=== PATIENT | female | born 1935 | race Caucasian/White ===

== ENCOUNTER 2021-01-18 15:11 | Outpatient (CLI) | payer MEDICARE, SELFPAY ==
--- NOTE | 2021-01-18 15:57 | ECG_ITS ---
Measurements Intervals [place] Rate: 68 P: 34 FL: 208 QRS: 5 QRSD: 85 T: 58 QT: 386 QTc: 411 Interpretive Statements SINUS RHYTHM WITH FIRST DEGREE AV BLOCK CONSIDER INFERIOR INFARCT, AGE INDETERMINATE BORDERLINE ST-T WAVE ABNORMALITY- HIGH LATERAL LEADS ABNORMAL ECG Electronically Signed On 01-18-2021 20:11:15 CDT by Trip Marvin D.O.
[2021-01-18 16:03] LABS: Hemoglobin 14.5 g/dL (12.0-15.0)
[2021-01-18 16:25] LABS: Albumin Level 4.4 g/dL (3.5-5.1); Estimated Glomerular Filt Rate > 60; Glucose 96 mg/dL (65-110)
[2021-01-18 17:18] LABS: Hemoglobin A1C 6.3 % (<5.7)
== END 2021-01-18 15:12 | disposition home or self-care (01) ==
PROVIDERS: PCP Internal Medicine; Visit Provider Orthopaedic Surgery
DX: R73.03 Prediabetes (principal); K21.9 Gastro-esophageal reflux disease without esophagitis; M17.12 Unilateral primary osteoarthritis, left knee; I44.30 Unspecified atrioventricular block; Z87.442 Personal history of urinary calculi; I10 Essential (primary) hypertension
CPT/HCPCS: 36415; 82040; 82565; 82947; 83036; 85014; 85018; 93005

== ENCOUNTER 2021-01-30 08:01 | Outpatient (CLI) | payer MEDICARE, SELFPAY ==
--- NOTE | 2021-01-30 09:30 | EST_ITS ---
Patient Info Name: Agnes Gary Age: 85 years : 1935 Gender: Female Ht: 61 in Wt: 171 lbs BSA: 1.86 m2 HR: 68 bpm BP: 162 / 72 mmHg Heart Rhythm: Sinus Rhythm Technical Quality: Excellent Exam Date: 01/30/2021 9:26 AM Exam Location: [facility] Patient Status: Outpatient Admit Date: 01/30/2021 Staff Ordering Physician: Manolo Johnson MD Attending Provider: Manolo Johnson MD Exercise Technologist: Nicole Valencia CRT Exercise Physician: Julianne Hernandez CEP Exam Type: CA stress frank w NM Study Info Indications AbnormalEKG - A nuclear stress test was performed. History/Risk Factors Hypertension: Yes History/Risk Factors HTN. Arrhythmia. Possible old Septal CT. Summary 1. 1. Abnormal lexiscan stress test for ischemic ST changes by ECG criteria. 2. 2. Baseline hypertension. 3. 3. Nuclear scan to follow and will be reported separately. Please correlate with it. Protocol: LEXISCAN Stress ECG Details Stage: REST Duration (min): 2 min : 6 sec HR (bpm): 68 SBP (mmHg): 162 DBP (mmHg): 72 Stage: REST Duration (min): 7 min : 35 sec HR (bpm): 68 SBP (mmHg): 162 DBP (mmHg): 72 Stage: STAGE 1 Duration (min): 0 min : 12 sec HR (bpm): 69 SBP (mmHg): 162 DBP (mmHg): 72 Stage: RECOVERY Duration (min): 0 min : 47 sec HR (bpm): 95 SBP (mmHg): 162 DBP (mmHg): 72 Stage: RECOVERY Duration (min): 1 min : 47 sec HR (bpm): 95 SBP (mmHg): 162 DBP (mmHg): 72 Stage: RECOVERY Duration (min): 2 min : 47 sec HR (bpm): 95 SBP (mmHg): 170 DBP (mmHg): 68 Stage: RECOVERY Duration (min): 3 min : 47 sec HR (bpm): 92 SBP (mmHg): 169 DBP (mmHg): 69 Stage: RECOVERY Duration (min): 4 min : 47 sec HR (bpm): 89 SBP (mmHg): 165 DBP (mmHg): 67 Stage: RECOVERY Duration (min): 5 min : 47 sec HR (bpm): 87 SBP (mmHg): 165 DBP (mmHg): 62 Stage: RECOVERY Duration (min): 6 min : 18 sec HR (bpm): 86 SBP (mmHg): 165 DBP (mmHg): 62 Rest HR: 68 bpm Peak HR: 96 bpm Rest Sys BP: 162 mmHg Peak Sys BP: 170 mmHg Max Pred HR: 135 bpm % Max Pred HR: 71 % Target HR: 115 bpm Max RPP: 16,320 bpm*mmHg Termination Reason: Completed Protocol Cardiac Symptoms: Dyspnea Total Time: 0 min : 12 sec Rest Venegas BP: 72 mmHg Peak Venegas BP: 68 mmHg Total Dose: 0.4 mg Resting ECG Normal sinus rhythm, first degree AV block, cannot r/o septal infarct, age indeterminate. Stress ECG ST depression 1 mm in II, III, avF, V4-V6. Arrhythmias None. Report Signatures
--- NOTE | 2021-01-30 14:02 | WPDCARIOSTRE ---
Nuclear Stress Test INDICATIONS Indications: SOB PROCEDURE Procedure Performed: Myocardial Perf Spect-Multi Procedure: Patient underwent a lexiscan stress test and immediately was injected with 33.9 mCi of cardiolyte. Multiple tomographic images were obtained. These are of good quality. There is no evidence of perfusion defects with stress imaging. A separate resting images were obtained after patient was injected with 10.4 mCi of cardiolyte. Multiple tomographic images were obtained. These are of good quality. There is no evidence of perfusion defects with rest imaging. CONCLUSION Conclusion: 1. Normal myocardial perfsion imaging demonstrating no perfusion defects with stress or rest imaging. 2. No evidence of reversible ischemia. 3. Left ventriculogram demonstrates normal measured ejection fraction at 81%. The LV size is small at 42 ml. No wall motion abnormalities. 4. TID score is normal at 1.04.
== END 2021-01-30 08:02 | disposition home or self-care (01) ==
LOC: CHSCARD 08:03
PROVIDERS: PCP Internal Medicine; Visit Provider Internal Medicine
DX: R94.31 Abnormal electrocardiogram [ECG] [EKG] (principal)
CPT/HCPCS: 78452; 93017; A9502; J2785

== ENCOUNTER 2021-05-10 08:05 | Outpatient (CLI) | payer MEDICARE, SELFPAY ==
[2021-05-10 10:10] LABS: Basophils Absolute Auto 0.1 K/mm3 (0.0-0.1); Basophils Percent Auto 0.6 % (0.2-1.2); Eosinophils Absolute Auto 0.2 K/mm3 (0-0.3); Eosinophils Percent Auto 1.9 % (0-4.4); Hematocrit 45.7 % (37.0-47.0); Hemoglobin 14.7 g/dL (12.0-15.0); Immature Granulocyte Absolute 0.03 K/mm3 (0.00-0.031); Immature Granulocyte Percent A 0.4 % (0-0.5); Lymphocytes Absolute Auto 2.01 K/mm3 (0.9-3.2); Lymphocytes Percent Auto 25.3 % (18.3-44.2); Mean Corpuscular HGB Conc 32.2 g/dl (32-36); Mean Corpuscular Hemoglobin 30.6 pg (26-34); Mean Platelet Volume 9.4 fl (7.4-10.4); Monocytes Absolute Auto 0.9 K/mm3 (0.1-0.6); Monocytes Percent Auto 11.3 % (2.6-8.5); Neutrophils Absolute Auto 4.8 K/mm3 (1.3-6.7); Neutrophils Percent Auto 60.5 % (45.5-73.1); Platelet Count Result 335 k/mm3 (150-375); Red Blood Count 4.81 M/mm3 (4.2-5.4); Red Cell Distribution Width 14.9 % (11.5-14.5)
[2021-05-10 10:27] LABS: Albumin Level 4.3 g/dL (3.5-5.1); Estimated Glomerular Filt Rate 60; Glucose 111 mg/dL (65-110)
[2021-05-10 10:33] LABS: Urine Cotinine NEGATIVE
[2021-05-10 11:02] LABS: Hemoglobin A1C 6.5 % (<5.7)
== END 2021-05-10 08:06 | disposition home or self-care (01) ==
LOC: ANHSURGERY 08:14
PROVIDERS: PCP Internal Medicine; Visit Provider Orthopaedic Surgery
DX: M17.11 Unilateral primary osteoarthritis, right knee (principal); Z01.818 Encounter for other preprocedural examination
CPT/HCPCS: 80307; 82040; 82565; 82947; 83036; 85025; 87081

== ENCOUNTER 2021-06-06 00:13 | Day surgery (SDC) | payer MEDICARE, SELFPAY ==
--- NOTE | 2021-05-10 08:01 | PC.NURSE ---
Report to the Outpatient Waiting Room, entrance under the green pavilion located off [facility], at time _0600_ on date _06/06/21_. OR Time: _0730 AM__. - You and your visitor will be asked a series of questions to screen for COVID 19 for your protection. - A mask is required within the hospital. - NO visitors are allowed at this time. Patient visitors will be guided where to wait when not with patient. Preoperative COVID Testing Requirements: No COVID Test needed if: (proof is required; if not received patient will have Rapid Test prior to entry) - Patient has received COVID Vaccine at least 14 days prior to procedure date or - Patient has positive COVID test result within last 90 days of surgery date. COVID Test needed if above criteria is not met If not COVID vaccinated a COVID test must be conducted within 72 hours of surgery and patient is asked to isolate self from time of testing until procedure. You will go to the [facility] for your COVID testing. The [facility] is located at the corner of [address] [facility]. You will only be called if COVID results are positive and your surgeon may reschedule your elective surgery date. Patients may have clear liquids (water, carbonated beverages, clear teas, apple juice) until 3 hours prior to surgery with a maximum of 20 ounces. (0430 AM) - No food from midnight until time of surgery - Infants may have breast milk until 4 hours before surgery, infant formula 6 hours prior to surgery. - Children will be allowed to drink immediately following surgery. If applicable, please bring a bottle or sippy cup to assist with drinking. Juice, water, soda, and popsicles are readily available. For infants on formula, please bring formula the day of surgery. Pacifiers are allowed. Take the following medications with a SIP of water the morning of surgery: _BUSPIRONE, METOPROLOL, RESTASIS___ Medications to discontinue per DR. BERG _ASPIRIN, IBUPROFEN, ALEVE, NAPROXEN - 7 DAYS PRIOR TO SURGERY___ Date to take last dose_05/29/21__ Please no make-up, nail bulgarian, hairspray, perfume, deodorant, or body powder the day of surgery. No jewelry (including any body piercings) or valuables the day of surgery, leave them at home. Please take a shower or bath the night before, or the morning of, surgery with an antibacterial soap. Wear comfortable, loose fitting clothing. Children are encouraged to wear pajamas. - Jewelry must be removed prior to entering the operating room. Rings and piercings that are not removed may be cut off. - The hospital will not accept responsibility for valuables. - Please leave all valuables, including medications, at home the day of surgery. If you are going home after surgery, a licensed class c truck driver must drive you home. - NO public transportation without another adult. - We recommend that an adult stay with you for 24 hours following discharge. - We also recommend that you do not drive, make important decision, drink alcoholic beverages, or take any drugs that were not prescribed by your health care provider for at least 24 hours after your discharge time. For Pediatric surgeries, we recommend two adults accompany the child home (only one inside the building at this time). Follow any additional instructions given to you from your surgeon. TOTAL JOINT CLASS TODAY (05/10/21) [facility] @ [address], LOWER LEVEL Telephone instructions given to _PT & DAUGHTER MARQUITA and asked if any additional questions and then verbalized understanding. Patient advised to call surgeon office or pre surgery nurse liaison [phone] if any additional questions.
[2021-05-10 08:42] VITALS: BP 166/72; PULSE 58; RESP 18; TEMP 36.8; O2SAT 100; BMI 31.1
--- NOTE | 2021-05-10 08:59 | PC.NURSE ---
Report to the Outpatient Waiting Room, entrance under the green pavilion located off [facility], at time _0600__ on date _06/06/21_. OR Time: _0730 A.___. - You and your visitor will be asked a series of questions to screen for COVID 19 for your protection. - A mask is required within the hospital. - NO visitors are allowed at this time. Patient visitors will be guided where to wait when not with patient. Preoperative COVID Testing Requirements: No COVID Test needed if: (proof is required; if not received patient will have Rapid Test prior to entry) - Patient has received COVID Vaccine at least 14 days prior to procedure date or - Patient has positive COVID test result within last 90 days of surgery date. COVID Test needed if above criteria is not met If not COVID vaccinated a COVID test must be conducted within 72 hours of surgery and patient is asked to isolate self from time of testing until procedure. You will go to the [facility] for your COVID testing. The [facility] is located at the corner of [address] [facility]. You will only be called if COVID results are positive and your surgeon may reschedule your elective surgery date. Patients may have clear liquids (water, carbonated beverages, clear teas, apple juice) until 3 hours prior to surgery with a maximum of 20 ounces. - No food from midnight until time of surgery - Infants may have breast milk until 4 hours before surgery, formula 6 hours prior to surgery. - Children will be allowed to drink immediately following surgery. If applicable, please bring a bottle or sippy cup to assist with drinking. Juice, water, soda, and popsicles are readily available. For infants on formula, please bring formula the day of surgery. Pacifiers are allowed. Take the following medications with a SIP of water the morning of surgery: _BUSPIRONE, METOPROLOL, RESTASIS__ Medications to discontinue per physician _ASPIRIN, IBUPROFEN, MOTRIN, ALEVE, NAPROXEN Date to take last dose____05/29/21 Please no make-up, nail sudanese, hairspray, perfume, deodorant, or body powder the day of surgery. No jewelry (including any body piercings) or valuables the day of surgery, leave them at home. Please take a shower or bath the night before, or the morning of, surgery with an antibacterial soap. Wear comfortable, loose fitting clothing. Children are encouraged to wear pajamas. - Jewelry must be removed prior to entering the operating room. Rings and piercings that are not removed may be cut off. - The hospital will not accept responsibility for valuables. - Please leave all valuables, including medications, at home the day of surgery. If you are going home after surgery, a licensed m48/m60 tank driver must drive you home. - NO public transportation without another adult. - We recommend that an adult stay with you for 24 hours following discharge. - We also recommend that you do not drive, make important decision, drink alcoholic beverages, or take any drugs that were not prescribed by your health care provider for at least 24 hours after your discharge time. For Pediatric surgeries, we recommend two adults accompany the child home (only one inside the building at this time). Follow any additional instructions given to you from your surgeon. TOTAL JOINT CLASS 05/10/21 (TODAY) @ [address] [place] [address], [address] MAIN ENTRANCE, LOWER LEVEL Telephone instructions given to _PT & DAUGHTER and asked if any additional questions and then verbalized understanding. Patient advised to call surgeon office or pre surgery nurse liaison [phone] if any additional questions.
[2021-06-06] VITALS (16 sets, daily range): BP systolic 121–177; BP diastolic 56–91; PULSE 60–77; RESP 14–18; TEMP 36.2–36.8; O2SAT 91–98
--- NOTE | ~2021-06-06 | XR_ITS ---
EXAMINATION: XR knee RT 2V DATE: 06/06/2021 09:51 INDICATION: Postoperative evaluation following right total knee arthroplasty. TECHNIQUE: Anteroposterior and lateral views of the right knee were obtained. COMPARISON: None. FINDINGS: Right total knee arthroplasty with patellar resurfacing appears well seated and in near anatomic alig nment. No fractures identified. Expected postoperative subcutaneous, intramedullary and intra-articu lar gas. IMPRESSION: 1. Right total knee arthroplasty, negative for postoperative purposes. Reviewed, dictated and finalized at location A. [facility] [employer]
[2021-06-06] MEDS: ACETAMINOPHEN 500 MG TABLET 1000 MG PO (06:35)
[2021-06-06] MEDS: TRANEXAMIC ACID 1,000MG/ISO100 1,000 MG/100 ML BAG 200 MG IVPB (06:40)
[2021-06-06] MEDS: LACTATED RINGERS 1,000 ML 30 ML IV CONT ×2 (06:40→09:47)
--- NOTE | 2021-06-06 07:05 | WPDANESEPPF ---
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 Patient Data Age: 86 Gender: F Height: 1.57 m Weight: 77.2 kg Last Vital Signs Temp 36.2 C L 06/06/21 06:11 Pulse 63 06/06/21 06:11 Resp 18 06/06/21 06:11 BP 177/70 H 06/06/21 06:11 Pulse Ox 98 06/06/21 06:11 Allergies Allergy/AdvReac Type Severity Reaction Status Date / Time Penicillins Allergy Mild Unknown-UNABLE Verified 06/06/21 06:16 TO RECALL carvedilol Allergy Unknown LEG CRAMPS Verified 06/06/21 06:16 iodine Allergy Unknown PT UNAWARE Verified 06/06/21 06:16 IF ALLERGIC TO TOPICAL IODINE - STAETS IVP DYE iohexol AdvReac Hives Verified 06/06/21 06:16 [From contrast - CT, X-RAY] Home Medications Medication Instructions Recorded Confirmed Type buspirone 5 mg tablet 5 mg PO BID 12/08/20 06/06/21 History metoprolol tartrate 25 mg tablet 25 mg PO BID 12/08/20 06/06/21 History omeprazole magnesium 20 mg 20 mg PO QAM 12/08/20 06/06/21 History tablet,delayed release cyclosporine [Restasis] 2 drp BID 05/10/21 06/06/21 History Patient hx anesthesia problems: post op nausea/vomiting Family hx anesthesia problems: none Results Review: All pre-operative results and documents have been reviewed as part of the pre-operative evaluation. [facility] Past Medical History Medical History [place]-vesical fistula History of cataract History of diverticulitis History of gastroesophageal reflux (GERD) History of hypertension History of kidney stones (~1988) History of osteoarthritis hands and feet History of prediabetes History of renal stone Hx of nephrolithotomy with removal of calculi Surgical History Surgical History History of colon resection (~11/2018) History of hysterectomy History of tonsillectomy (~1959) Family History Family History Sibling Colon polyp Son Type 2 diabetes mellitus Other Diabetes mellitus Family history of malignant neoplasm Social History Social History Second hand tobacco smoke exposure: No Additional smoking assessment comments: PT DENIES ALL FORMS OF TOBACCO USE Alcohol intake: never Substance use: never Substance use type: does not use Living arrangements: alone Spiritual care concerns: No Anes - Eval Final PreProcedure Day of Procedure 06/06/21 07:05 Patient weight: obese Heart: regular rate and rhythm Lungs: clear to auscultation Airway: Mallampati scale class II Neurological: alert and oriented Last oral intake: >/= 8 hours ASA classification: III Emergent: no Anesthetic plan: proceed Anesthesia type and monitoring: general LMA and standard monitoring Results Review: All pre-operative results and documents have been reviewed as part of the pre-operative evaluation. Informed Consent: The patient's anesthetic plan and its attendant risks and benefits were discussed with the patient/family/POA. Questions were solicited and answers provided to the satisfaction of the patient/family/POA.
--- NOTE | 2021-06-06 07:14 | WPDHPUPDATE1 ---
History and Physical Update Update Date/Time: 06/06/21 07:14 History and Physical has been reviewed, including an updated exam of the patient. There are NO changes in the patient's condition. Risks, benefits, and alternatives have been discussed and questions answered. Patient agrees to proceed with procedure.
[2021-06-06] MEDS: ceFAZolin 2 GM/D5W 50 ML 2 GM/50 ML BAG IVPB (07:33)
[2021-06-06] MEDS: GENTAMICIN BONE CEMENT REFOBACIN 1 EACH TOPICAL (08:13)
--- NOTE | 2021-06-06 10:22 | P.OP_ITS ---
Procedure Note - Detailed Date of Procedure 06/06/21 Pre-op Diagnosis primary oa right knee Post-op Diagnosis same Procedure Performed Total knee arthroplasty, right knee. Surgeon Brigido Jolley MD [employer] Bailee Jimenez PA-C Anesthesia general and regional Description of Procedure The patient was given a nerve block preoperatively, and then brought to the operating room. A general anesthetic was administered. The leg was prepped and draped in the usual sterile fashion. The limb was elevated and the tourniquet inflated to 300 mmHg during initial exposure, and cementation. A longitudinal incision was created along the medial border of the patella and patellar tendon, and a trivector approach to the knee was performed. A moderate medial release was taken. The knee was then flexed. The osteophytes were carefully removed. The intramedullary guide was placed in the femoral canal. The distal femoral resection was then taken with the oscillating saw. The collateral ligaments were carefully protected. The tibia was carefully exposed. The jig was applied, and the proximal tibia was resected according to preoperative plan. The pain really anesthetic mixture was injected into the periarticular tissues. The knee was balanced in extension, and appropriate releases were taken where needed. The anterior cruciate ligament and meniscal remnants were removed. The posterior cruciate ligament was preserved. The patella was measured. Patellar resection was carried out with the oscillating saw. The lug holes drilled. The femur was sized and rotation assessed using a combination of gap balancing, posterior referencing, and the AP axis. The 4 in 1 cutting block was used to finish the femoral cuts after equal gaps were assured. The lug holes were drilled. The osteophytes were carefully removed from the back of the knee. The knee was copiously irrigated with antibiotic solution periodically throughout the procedure. The spacer block was used to confirm equal flexion and extension gaps. Further releases were performed as needed. The tibia was sized and b roached. The bony surfaces were prepared for cementing with pulsatile lavage. The real tibial component and femoral components were cemented into position. Excess cement was carefully removed. The polyethylene insert was placed. The patella component was subsequently cemented. Patellar tracking was carefully assessed. No additional releases were required. The wound was closed with #1 Vicryl suture, #2 Quill suture, 1-[id number] suture, and 2-0 Strata-fix suture followed by Steri-Strips. A sterile bulky dressing was applied. Meticulous hemostasis was maintained throughout the procedure. There were no complications. The patient was extubated and brought to the recovery room in stable condition after the application of sterile dressing with Jose bandage. Implants [place] cemented cruciate retaining tka Estimated Blood Loss 100 Drains No Pathology none sent Complications No immediate complications Condition stable Disposition PACU
[2021-06-06] MEDS: oxyCODONE HCL (*CRX) 5 MG TAB IR PO (12:39)
[2021-06-06] MEDS: ONDANSETRON INJ 4 MG/2 ML VIAL IV PUSH (12:48)
--- NOTE | 2021-06-06 13:40 | SUR.PHASEII ---
2750- Call to Dr. Jolley that patient has eaten half of her lunch tray and PT/OT has cleared patient for discharge. Per Dr. Jolley he will round on patient and discharge her home.
--- NOTE | 2021-06-06 14:05 | SUR.PHASEII ---
1405- Dr. Jolley to outpatient room 17 and rounded on patient at bedside. Per MD he is OK with patient discharging home.
== END 2021-06-06 16:13 | disposition home or self-care (01) ==
PROVIDERS: PCP Internal Medicine; Visit Provider Orthopaedic Surgery
PROC: (CPT 27447; principal; 2021-06-06 07:30)
DX: M17.11 Unilateral primary osteoarthritis, right knee (principal); I10 Essential (primary) hypertension; K21.9 Gastro-esophageal reflux disease without esophagitis; Z90.49 Acquired absence of other specified parts of digestive tract; E66.9 Obesity, unspecified; Z68.31 Body mass index [BMI] 31.0-31.9, adult
CPT/HCPCS: 27447; 36415; 73560; 86850; 86900; 86901; 97110; 97161; 97165; A9270; C1713; C1776; J0171; J0690; J1100; J1885; J2270; J2405; J2704; J2795; J7120

== ENCOUNTER 2022-06-29 09:24 | Outpatient (CLI) | payer MEDICARE, SELFPAY ==
--- NOTE | 2022-06-29 09:39 | ECG_ITS ---
Measurements Intervals [place] Rate: 51 P: 34 [place]: 222 QRS: 0 QRSD: 76 T: 53 QT: 422 QTc: 391 Interpretive Statements SINUS BRADYCARDIA WITH FIRST DEGREE AV BLOCK POOR R-WAVE PROGRESSION CONSIDER PREVIOUS INFERIOR INFARCTION ABNORMAL ECG COMPARED WITH 01/18/2021: HEART RATE IS REDUCED, NO SIGNIFICANT CHANGE Electronically Signed On 06-29-2022 15:29:47 ADOPTION AGENT by Delbert Queen M.D.
== END 2022-06-29 09:25 | disposition home or self-care (01) ==
LOC: ANHSURGERY 09:30
PROVIDERS: PCP Internal Medicine; Visit Provider Orthopaedic Surgery
DX: I10 Essential (primary) hypertension (principal); Z01.818 Encounter for other preprocedural examination
CPT/HCPCS: 93005

== ENCOUNTER 2022-07-05 00:34 | Day surgery (SDC) | payer MEDICARE, SELFPAY ==
[2022-06-26 10:33] VITALS: BMI 30.4
--- NOTE | 2022-06-26 10:56 | PC.NURSE ---
Report to the Outpatient Waiting Room, entrance under the green pavilion located off [facility], at time __9:00am on date __07/05/22 . Planned Procedure Time: __11:00am . Time changes happen often and if your time is changed the preop area will call you the afternoon before. - You and your visitor will be asked to self-screen and do not enter if you have any COVID symptoms. - Only one visitor is requested with a max of two and NO children visitors are allowed at this time. - The patient visitor may be requested to leave or wait in car when not with patient due to distancing restrictions. - A mask is optional within the hospital at this time. Patients may have clear liquids (water, carbonated beverages, clear teas, apple juice) until 3 hours prior to surgery with a maximum of 20 ounces. - No food from midnight until time of surgery Take the following medications with a SIP of water the morning of surgery: __BUSPIRONE, METOPROLOL, RESTASIS DO NOT STOP ANY OF YOUR OTHER PRESCRIPTION MEDICATIONS PRIOR TO SURGERY ?EXCEPT THE FOLLOWING Medications to discontinue per physician ____NONE Date to take last dose Please no make-up, nail pashto, hairspray, perfume, deodorant, or body powder the day of surgery. No jewelry (including any body piercings) or valuables the day of surgery, leave them at home. Please take a shower or bath the night before, or the morning of, surgery with an antibacterial soap. Wear comfortable, loose fitting clothing. Children are encouraged to wear pajamas. - Jewelry must be removed prior to entering the operating room. Rings and piercings that are not removed may be cut off. - The hospital will not accept responsibility for valuables. - Please leave all valuables, including medications, at home the day of surgery. If you are going home after surgery, a licensed bus driver must drive you home. - NO public transportation without another adult if you receive anesthesia. - We recommend that an adult stay with you for 24 hours following discharge. - We also recommend that you do not drive, make important decision, drink alcoholic beverages, or take any drugs that were not prescribed by your health care provider for at least 24 hours after your discharge time. Follow any additional instructions given to you from your surgeon. If you or anyone in your household have experienced Covid symptoms in the past week, please notify your surgeon or the nurse liaison at the phone number below for possible testing. Telephone instructions given to __PATIENT_and asked if any additional questions and then verbalized understanding. Patient advised to call surgeon office or pre surgery nurse liaison [phone] if any additional questions.
--- NOTE | 2022-07-04 11:57 | WPDANESEPPF ---
Anes - Initial Pre Proc Eval Procedure: Operation Date: 07/05/22 11:00 Proposed Procedures p Release Right Carpal Tunnel - Brigido Jolley MD s Release Right Trigger Thumb - Brigido Jolley MD Date/Time: 07/04/22 11:57 Surgeon: Brigido Jolley MD Pre Op Diagnosis: Right Carpal Tunnel Syn, Rt Trigger Thumb Patient Data Age: 87 Gender: F Height: 1.6 m Weight: 78 kg Allergies Allergy/AdvReac Type Severity Reaction Status Date / Time iodine Allergy Intermediate Hives Verified 07/05/22 09:48 iohexol Allergy Intermediate Hives Verified 07/05/22 09:48 [From contrast - CT, X-RAY] Penicillins Allergy Unknown Unknown-UNABLE Verified 07/05/22 09:48 TO RECALL carvedilol AdvReac Mild LEG CRAMPS Verified 07/05/22 09:48 Home Medications Medication Instructions Recorded Confirmed Type buspirone 5 mg tablet 5 mg PO BID 12/08/20 07/05/22 History metoprolol tartrate 25 mg tablet 25 mg PO BID 12/08/20 07/05/22 History omeprazole magnesium 20 mg 20 mg PO HS 12/08/20 07/05/22 History tablet,delayed release cyclosporine 0.05 % eye drops in a 2 drp EACH EYE BID 05/10/21 07/05/22 History dropperette (Restasis) Patient hx anesthesia problems: none Family hx anesthesia problems: none Results Review: All pre-operative results and documents have been reviewed as part of the pre-operative evaluation. COUNT INCLUDES THE [facility] Past Medical History Medical History [place]-vesical fistula History of cataract History of diverticulitis History of gastroesophageal reflux (GERD) History of hypertension History of kidney stones (~1988) History of osteoarthritis hands and feet History of prediabetes History of renal stone Hx of nephrolithotomy with removal of calculi Surgical History Surgical History History of colon resection (~11/2018) History of hysterectomy History of tonsillectomy (~1958) Family History Family History Sibling Colon polyp Son Type 2 diabetes mellitus Other Diabetes mellitus Family history of malignant neoplasm Social History Social History Smoking status: Never smoker Second hand tobacco smoke exposure: No Additional smoking assessment comments: PT DENIES ALL FORMS OF TOBACCO USE Alcohol intake: current Substance use: never Substance use type: does not use Lack of Transportation: No Lack of Food: Never True Current Housing: I Have Housing Concerned About Future Housing: No Difficulty Paying Gas/Electric Bills: No Difficulty Paying for Meds: No Currently Unemployed: No Education: High School Diploma/GED Difficulty w/ Childcare or Family Care: No Living arrangements: alone Spiritual care concerns: No Anes - Eval Final PreProcedure Day of Procedure 07/04/22 11:57 Patient weight: obese Heart: regular rate and rhythm Lungs: clear to auscultation Airway: Mallampati scale class II Neurological: alert and oriented Last oral intake: >/= 8 hours ASA classification: III Emergent: no Anesthetic plan: proceed Anesthesia type and monitoring: general GIVS and standard monitoring Results Review: All pre-operative results and documents have been reviewed as part of the pre-operative evaluation. Informed Consent: The patient's anesthetic plan and its attendant risks and benefits were discussed with the patient/family/POA. Questions were solicited and answers provided to the satisfaction of the patient/family/POA.
[2022-07-05] VITALS (9 sets, daily range): BP systolic 125–174; BP diastolic 53–69; PULSE 60–79; RESP 14–20; TEMP 36.6–36.7; O2SAT 96–100
[2022-07-05] MEDS: ACETAMINOPHEN 500 MG TABLET 1000 MG PO (09:45)
[2022-07-05] MEDS: LACTATED RINGERS 1,000 ML 30 ML IV CONT (10:04)
[2022-07-05] MEDS: KETOROLAC 15 MG/ML VIAL (*BKC) IV PUSH (10:05)
--- NOTE | 2022-07-05 10:07 | WPDHPUPDATE1 ---
History and Physical Update Update Date/Time: 07/05/22 10:07 History and Physical has been reviewed, including an updated exam of the patient. There are NO changes in the patient's condition. Risks, benefits, and alternatives have been discussed and questions answered. Patient agrees to proceed with procedure.
[2022-07-05] MEDS: ceFAZolin 2 GM/D5W 50 ML 2 GM/50 ML BAG IVPB (10:45)
--- NOTE | 2022-07-05 10:47 | W.PM.PROC2 ---
Procedure Note - Detailed Date of Procedure 07/05/22 Pre-op Diagnosis Right Carpal Tunnel Syn, Rt Trigger Thumb Post-op Diagnosis Same Procedure Performed Right 1. Carpal tunnel release 2. Trigger thumb release Surgeon Brigido Jolley MD Anesthesia General Description of Procedure Operative details. After sedation was administer, the hand was prepped and draped in the usual sterile fashion. The proposed incision was marked using typical anatomic landmarks. 4ML 0.5% Marcaine with epinephrine was injected along the incision line and at the distal forearm. The limb was exsanguinated and the tourniquet inflated to 250 millimeters of mercury. A longitudinal incision was taken sharply. Dissection was brought down to the transverse carpal ligament. Under direct vision the ligament was incised sharply. The proximal release was carried out with dissection scissors. The contents of the carpal canal were protected with a [place] elevator. The transverse carpal ligament was confirmed to be widely patent. A transverse incision was created over the A1 natty of the thumb and subcutaneous dissection was carried out bluntly. The A1 natty was identified and visualized. It was released with the dissection scissors longitudinally. The tourniquet was released. The wounds were closed with horizontal mattress Prolene suture 3-0. A sterile bulky dressing was applied. The patient was brought to the recovery room in stable condition. There were no complications. Estimated Blood Loss 1 Pathology None sent Complications No immediate complications Condition Stable Disposition PACU [facility] Billing Surgery - Charge Forward: Surgery Billing
[2022-07-05] MEDS: BUPIVACAINE/EPINEPHRINE 0.5% 50 ML VIAL 10 ML INFILTRATE (11:10)
== END 2022-07-05 13:17 | disposition home or self-care (01) ==
PROVIDERS: PCP Internal Medicine; Visit Provider Orthopaedic Surgery
PROC: (CPT 64721; principal; 2022-07-05 11:00)
PROC: (CPT 26055; 2022-07-05 11:00)
DX: G56.01 Carpal tunnel syndrome, right upper limb (principal); M65.311 Trigger thumb, right thumb; E66.9 Obesity, unspecified; Z68.30 Body mass index [BMI] 30.0-30.9, adult
CPT/HCPCS: 64721; 26055; A9270; J0690; J1885; J2370; J2704; J3010; J7120

== ENCOUNTER 2024-08-24 14:10 | Outpatient (CLI) | payer MEDICARE, SELFPAY ==
--- NOTE | ~2024-08-24 | XR_ITS ---
3 VIEWS LUMBAR SPINE Ordering provider: Manolo Johnson MD History: . BACK PAIN . Comparison: None. FINDINGS: VERTEBRAL BODIES: No visible fracture or subluxation. Degenerative changes of the spine. Mild dextros coliosis. DISK SPACES: Narrowing of all the disc spaces. Bilateral sacroiliacs. SOFT TISSUES: Atherosclerotic changes of the aorta. IMPRESSION: No acute osseous abnormality lumbar spine. Multilevel degenerative disc disease. Reviewed, dictated and finalized at location A.
--- OUTSIDE RECORDS SUMMARY | 2024-08-24 16:05 | XMS_ITS | Referral Summary ---
Author Organization [facility] [address] Address [address] [place] [address] Phone Care Team Providers Care Ammonia Worker Name Role Phone Manolo Johnson MD Primary Care Provider [phone] Allergies Active Allergy Reactions Criticality Noted Date Comments Iodine Hives Medium Medications metoprolol (LOPRESSOR) 25 mg tablet Take 1 tablet (25 mg total) by mouth 2 (two) times a day. 180 tablet 2 8 Active Additional Information Patient taking differently:25 mg oral 2 times daily,Indications: hypertension, Reported on 01/27/2024 omeprazole (PriLOSEC) 20 mg capsule TAKE 1 CAPSULE BY MOUTH DAILY 90 capsule 8 Active ibuprofen (ADVIL,MOTRIN) 600 mg tabletIndicatio ns:Pain Take 1 tablet (600 mg total) by mouth every 8 (eight) hours 9 Active acetaminophen 500 mg capsule Take 2 capsules (1,000 mg total) by mouth every 8 (eight) hours 30 tablet 9 Active menthol-zinc oxide 0.44-20.6 % ointment Apply topically 4 (four) times a day as needed (Prevent break down) 1 Tube 9 Active RESTASIS 0.05 % ophthalmic emulsion 9 Active busPIRone (BUSPAR) 15 mg tabletIndicatio ns:Generalized Anxiety Disorder Take 1 tablet (15 mg total) by mouth 3 (three) times a day Active Active Problems Problem Noted Date Diagnosed Date History of colonic polyps 12/25/2023 Diverticulitis 09/09/2018 Overview (09/09/2018): Added automatically from request for surgery [id number] Colonic mass 08/25/2018 Overview (08/25/2018): Added automatically from request for surgery [id number] Screen for colon cancer 07/10/2018 Overview (07/10/2018): Added automatically from request for surgery [id number] Lichen sclerosus et atrophicus 06/20/2017 History of abdominal hysterectomy 03/27/2017 Gastroesophageal reflux disease with esophagitis 09/19/2013 Overview (08/08/2016): REFLUX ESOPHAGITIS Benign hypertension 09/19/2013 Overview (08/08/2016): BENIGN HYPERTENSION Calculus of kidney 09/19/2013 Overview (08/10/2016): CALCULUS OF KIDNEY Generalized osteoarthritis 09/19/2013 Overview (08/10/2016): GENERAL OSTEOARTHROSIS Hyperlipidemia 07/19/2010 Overview (08/09/2016): Hyperlipidemia Immunizations Immunization Administration Dates Next Due Pneumococcal Polysaccharide PPV23 02/19/2008,02/2007 Social History Tobacco Use Types Packs/Day Years Used Date Smoking Tobacco: Never Smokeless Tobacco: Never Alcohol Use Standard Drinks/Week Comments Yes 0 (1 standard drink = 0.6 oz pur e alcohol) very rare AUDIT-C Answer Date Recorded Q1: How often do you have a drink containing alc ohol? Monthly or less 01/27/2024 Q2: How many drinks containi ng alcohol do you have on a typical day when you are drinking? 1 or 2 01/27/2024 Q3: How often do you have si x or more drinks on one occasion? Never 01/27/2024 Personal Safety Answer Date Recorded Have you ever been in or are you currently in a harmful physical or emotional relationship or is someone making you feel afraid or unsafe? 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 Gender Identity Not on file Sexual Orientation Not on file Last Filed Vital Signs Vital Sign Reading Time Taken Comments Blood Pressure 156/72 01/27/2024 1:40 PM CDT Pulse 84 01/27/2024 1:40 PM CDT Temperature 36 C (96.8 F) 01/27/2024 1:22 PM CDT Respiratory Rate 13 01/27/2024 1:40 PM CDT Oxygen Saturation 92% 01/27/2024 1:40 PM CDT Inhaled Oxygen Concentration - - Weight 77.1 kg (170 lb) 01/27/2024 12:02 PM CDT Height 160 cm (5' 3 ) 01/27/2024 12:02 PM CDT Body Mass Index 30.11 01/27/2024 12:02 PM CDT Plan of Treatment Not on file Insurance [facility] MEDICARE [facility] MEDICARE MEDICARE [facility] MEDICARE [facility] Advance Directives For more information, please contact: [phone] * Full Code (Latest Code Status on File) Date Activated Date Inactivated Comments 01/27/2024 11:53 AM 01/27/2024 6:17 PM * Full Code Date Activated Date Inactivated Comments 02/06/2019 8:47 AM 02/06/2019 3:29 PM * Full Code Date Activated Date Inactivated Comments 10/29/2018 8:43 PM 11/03/2018 7:30 PM Care Teams Ammonia Worker Relationship Specialty Start Date End Date Manolo Johnson MD PCP - General Internal Medicine 07/01/18
--- OUTSIDE RECORDS SUMMARY | 2024-08-24 16:07 | XMS_ITS | Clinical Summary ---
Author Organization [facility] [address] Address [address] [place] [address] Phone Care Team Providers Care Echocardiologist Name Role Phone Manolo Johnson MD Primary Care Provider [phone] Allergies Active Allergy Reactions Criticality Noted Date [...] (09/09/2018): Added automatically from request for surgery [id number] Colonic mass 08/25/2018 Overview (08/25/2018): Added automatically from request for surgery [id number] Screen for colon cancer 07/10/2018 Overview (07/10/2018): Added automatically from request for surgery [id number] Lichen sclerosus et atrophicus 06/20/2017 History of abdominal hysterectomy 03/27/2017 Gastroesophageal reflux disease with esophagitis 09/19/2013 Overview (08/08/2016): REFLUX ESOPHAGITIS Benign hypertension 09/19/2013 Overview (08/08/2016): BENIGN HYPERTENSION Calculus of kidney 09/19/2013 Overview (08/10/2016): CALCULUS OF KIDNEY Generalized osteoarthritis 09/19/2013 Overview (08/10/2016): GENERAL OSTEOARTHROSIS Hyperlipidemia 07/19/2010 Overview (08/09/2016): Hyperlipidemia Immunizations Immunization Administration Dates Next Due Pneumococcal Polysaccharide PPV23 02/19/2008,02/2007 Surgical History Surgery Date Site/Laterality Comments OTHER SURGICAL HISTORY 05/06/1988 - 05/05/1989 nephrolithiasis: kidney stone surgery OTHER SURGICAL HISTORY 05/06/1973 - 05/05/1974 fibroids: Hysterectomy OTHER SURGICAL HISTORY 05/06/1956 - 05/05/1957 : OTHER SURGICAL HISTORY 05/06/1958 - 05/05/1959 : OTHER SURGICAL HISTORY 05/06/1960 - 05/05/1961 : OTHER SURGICAL HISTORY 05/06/1962 - 05/05/1963 : VAGINAL HYSTERECTOMY Hysterectomy, vaginal ENDOMETRIAL BIOPSY 01/26/2002 Dx: Lichenoid Dermatitis TONSILLECTOMY 05/06/1958 - 05/05/1959 HYSTERECTOMY 05/06/1973 - 05/05/1974 COLONOSCOPY 08-22-2018 Medical History Medical History Date Comments Calculus of kidney nephrolithias is Hx Other Medical fibroids Hx Other Medical 1956 ; Outc ome: 7 lb(s) 5 oz Male Hx Other Medical 1958 ; Outc ome: 8 lb(s) Male Hx Other Medical 1960 ; Outc ome: 9 lb(s) Female Hx Other Medical 1962 ; Outc ome: 8 lb(s) 5 oz Male Calculus of kidney kidney stones Hx Other Medical 2009 Lichen sclerosu s Hypertension GERD (gastroesophageal reflux disease) Arthritis Anxiety Family History Medical History Relation Name Comments Cancer Brother Colon cancer Brother Cancer -colon; Breast cancer Mother's Sister Cancer Mother's Sister Other Other 1 1 Cancer Other 2 Family history of Cancer -; Other Other 3 1 Diabetes type II Other 4 Family hist ory of Diabetes -Type II; Other Other 5 1 Diabetes Son Relation Name Status Comments Brother Alive Mother's Sister Other 1 Other 2 Other 3 Other 4 Other 5 Son Alive Social History Tobacco Use Types Packs/Day Years [...] on file 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 Gender Identity Not on file Sexual Orientation Not on file Obstetrics History Para Term AB IAB SAB Ectopic Multiple Livin g Live Births 4 4 4 4 4 Date Outcome GA Total Labor Labor/2nd/3rd Weight Sex Type Anes PTL [place] A1 A5 Name Clin 7 Term 3.189 kg (7 lb 0.5 oz) M Vag-S pont Living 9 Term 3.629 kg (8 lb) M Vag-S pont Living 1 Term 4.082 kg (9 lb) F Vag-S pont Living 3 Term 3.629 kg (8 lb) M Vag-S pont Living Last Filed Vital Signs Vital Sign Reading [...] 01/27/2024 12:02 PM CDT Plan of Treatment Health Maintenance Due Date Last Done Comments Depression Screening 1935 DTaP/Tdap/Td Vaccine (1 - Tdap) 1946 Hepatitis B Screening 1953 Zoster Vaccine (1 of 2) 1985 Pneumococcal vaccine 65+ (2 of 2 - PCV) 02/18/2009 02/19/2008, 01/13/2007 Well Visit 65+ 01/21/2018 01/21/2017 Covid-19 Vaccine ( season) 2024 04/19/2021, 07/22/2020, 07/01/2020 Influenza Vaccine (#1) 2024 05/06/2018 Fall Risk Assessment 01/26/2025 01/27/2024 Insurance [facility] Member Subscriber Plan / Payer (Ef fective 2016-Present) Name:AGNES PETTIT Relation to Subscriber:Self Name:Agnes Pettit Payer ID:[id number] Group ID:Not on file Type:COMMERCIAL Address: [facility] [id number] [place] [id number] MEDICARE [facility] MEDICARE MEDICARE [facility] MEDICARE [facility] Member Subscriber Plan / Payer ( fective 2016-Present) Name:Agnes Pettit Relation to Subscriber:Self Name:Agnes Pettit Payer ID:[id number] Group ID:[id number] Type:COMMERCIAL Address: [place] [id number] Advance Directives For more information, please contact: [phone] * Full Code (Latest Code Status on File) Date Activated Date Inactivated Comments 01/27/2024 11:53 AM 01/27/2024 6:17 PM * Full Code Date Activated Date Inactivated Comments 02/06/2019 8:47 AM 02/06/2019 3:29 PM * Full Code Date Activated Date Inactivated Comments 10/29/2018 8:43 PM 11/03/2018 7:30 PM Care Teams Echocardiologist Relationship Specialty Start Date End Date Manolo Johnson MD PCP - General Internal Medicine 07/01/18
== END 2024-08-24 14:11 | disposition home or self-care (01) ==
LOC: CHSIMG 14:13
PROVIDERS: PCP Internal Medicine; Visit Provider Internal Medicine
DX: E11.9 Type 2 diabetes mellitus without complications (principal); I10 Essential (primary) hypertension; R30.0 Dysuria; M51.369 Other intervertebral disc degeneration, lumbar region without mention of lumbar back pain or lower extremity pain
CPT/HCPCS: 72100